=== PATIENT | male | born 1985 | race Caucasian/White ===

== ENCOUNTER 2017-01-21 13:37 | Inpatient (IN) | payer MEDICAID ==
[~2017-01-21] VITALS: Ht 182.9 cm; Wt 101.6 kg
[2017-01-21 15:09] VITALS: BP 155/101
[2017-01-21] MEDS ORDERED: ZOLPIDEM TARTRATE 10 MG TABLET PO PRN (15:15)
[2017-01-21] MEDS ORDERED: HYDR25TA PO ×2 (16:08→17:55)
[2017-01-21] MEDS ORDERED: LISI-662 PO (16:08)
[2017-01-21] MEDS ORDERED: GABA-529 PO (16:08)
[2017-01-21 16:09] VITALS: BP 139/91
[2017-01-21 16:15] VITALS: BP 152/97
[2017-01-21] MEDS: LORazepam 2 MG TABLET PO PRN (16:33)
[2017-01-21] MEDS: HALOPERIDOL 5 MG TABLET PO PRN (16:33)
[2017-01-21] MEDS: DULoxetine HCL 30 MG CAPSULE PO SCH (16:51)
[2017-01-21] MEDS ORDERED: INFLUENZA VIRUS VACCINE QVS 2017-18 (3YR+)/PF 60 MCG/0.5 ML SYRINGE IM ONE (17:00)
[2017-01-21] MEDS ORDERED: PNEUMOCOCCAL VACCINE POLYVALENT 0.5 ML VIAL [PPSV23] IM ONE (17:00)
[2017-01-21] MEDS: HYDROCHLOROTHIAZIDE 25 MG TABLET PO SCH (17:38)
[2017-01-21] MEDS: LISINOPRIL 20 MG TABLET PO SCH (17:38)
[2017-01-21] MEDS: GABAPENTIN 300 MG CAPSULE PO SCH (17:38)
[2017-01-21] MEDS ORDERED: GABA-531 PO (17:55)
[2017-01-21 18:00] VITALS: BP 124/58
[2017-01-22 05:45] VITALS: BP 125/76
[2017-01-22 07:41] LABS: BASOPHILS # (AUTO) 0.06 K/uL (0.00-0.20); BASOPHILS % (AUTO) 0.7 % (0.0-2.0); EOSINOPHILS % (AUTO) 1.27 % (1.0-6.0); HEMATOCRIT 41.9 % (41-53); HEMOGLOBIN 14.1 g/dL (13.5-17.5); LYMPHOCYTES # (AUTO) 2.6 K/uL (1.0-4.8); LYMPHOCYTES % (AUTO) 31.8 % (22.0-44.0); MEAN CORPUSCULAR HEMOGLOBIN 29.9 pg (26.0-34.0); MEAN CORPUSCULAR HGB CONC 33.6 G/dL (31.0-37.0); MEAN CORPUSCULAR VOLUME 89 fL (80-100); MONOCYTES # (AUTO) 0.7 K/uL (0.1-1.0); MONOCYTES % (AUTO) 8.7 % (2.0-9.0); NEUTROPHILS # (AUTO) 4.7 K/uL (1.8-7.7); NEUTROPHILS % (AUTO) 57.6 % (40.0-70.0); PLATELET COUNT (AUTO) 204 K/uL (150-450); RED BLOOD CELL COUNT(AUTO) 4.71 MIL/uL (4.50-5.90); RED CELL DISTRIBUTION WIDTH 13.9 % (11.5-14.5); WHITE BLOOD COUNT (AUTO) 8.2 K/uL (4.5-11.0)
[2017-01-22] MEDS ORDERED: ALBUTEROL SULFATE HFA 90 MCG/PUFF 8 GM INHALER IH PRN (08:00)
[2017-01-22] MEDS ORDERED: MAG HYDROX/AL HYDROX/SIMETH ES 30 ML SUSPENSION UDCUP PO PRN (08:00)
[2017-01-22] MEDS ORDERED: BACITRACIN 28.4 GM OINTMENT TP PRN (08:00)
[2017-01-22] MEDS ORDERED: PETROLATUM,WHITE 71 GM JELLY TP PRN (08:00)
[2017-01-22] MEDS ORDERED: MAGNESIUM HYDROXIDE SUSPENSION 30 ML UDCUP PO PRN (08:00)
[2017-01-22] MEDS ORDERED: CloNIDine HCL 0.1 MG TABLET PO PRN (08:00)
[2017-01-22] MEDS ORDERED: ONDANSETRON HCL 4 MG TABLET PO PRN (08:00)
[2017-01-22] MEDS ORDERED: LOPERAMIDE HCL 2 MG CAPSULE PO PRN (08:00)
[2017-01-22] MEDS ORDERED: ACETAMINOPHEN 325 MG TABLET PO PRN (08:00)
[2017-01-22] MEDS ORDERED: BENZOCAINE/MENTHOL LOZENGE MM PRN (08:00)
[2017-01-22] MEDS ORDERED: IBUPROFEN 600 MG TABLET PO PRN (08:00)
[2017-01-22 08:29] LABS: HEMOGLOBIN A1C 5.7 % (4.5-6.2)
[2017-01-22 08:38] VITALS: BP 120/76
[2017-01-22 08:46] LABS: APPEARANCE,URINE TURBID (CLEAR); GLUCOSE, URINE (UA) NEGATIVE (NEGATIVE); KETONES,URINE >=80 mg/dL (NEGATIVE); LEUKOCYTE ESTERASE ,URINE NEGATIVE (NEGATIVE); OCCULT BLOOD,URINE NEGATIVE (NEGATIVE); PROTEIN,URINE NEGATIVE (NEGATIVE)
[2017-01-22 08:52] LABS: ADD UA MICROSCOPIC YES
[2017-01-22 08:53] LABS: ALANINE AMINOTRANSFERASE 30 U/L (12-78); ALBUMIN 4.1 g/dL (3.4-5.0); ANION GAP 10 mmol/L (8-16); ASPARTATE AMINOTRANSFERASE 18 U/L (15-37); BILIRUBIN,TOTAL 1.6 mg/dL (0.1-1.0); CALCIUM, TOTAL 8.8 mg/dL (8.8-10.5); CARBON DIOXIDE 27 mmol/L (22-29); CHLORIDE 100 mmol/L (98-107); CHOL/HDL RATIO 4.4 (4.2-7.3); CREATININE 0.83 mg/dL (0.60-1.30); GLOMERULAR FILTR. RATE CALC > 60 mL/min (>60); POTASSIUM 3.8 mmol/L (3.5-5.1); SODIUM SERUM 137 mmol/L (136-145); THYROID STIMULATING HORMONE 1.78 uIU/mL (0.36-3.74); TOTAL PROTEIN, SERUM 6.9 g/dL (6.4-8.2); UREA NITROGEN, BLOOD 15 mg/dL (7-18)
[2017-01-22 08:53] LABS: RBC,URINE None Seen /HPF (0-2)
[2017-01-22 08:54] LABS: AMORPHOUS SEDIMENT,UR Many /LPF (None Seen); CALCIUM OXALATE CRYSTALS,UR Few /LPF (None Seen); SQUAMOUS EPITHELIAL CELL,UR None Seen /LPF (None Seen); WBC,URINE None Seen /HPF (0-5)
[2017-01-22] MEDS: HYDROCHLOROTHIAZIDE 25 MG TABLET PO SCH (09:20)
[2017-01-22] MEDS: LORazepam 2 MG TABLET PO PRN (09:20)
[2017-01-22] MEDS: DULoxetine HCL 30 MG CAPSULE PO SCH ×2 (09:20→17:00)
[2017-01-22] MEDS: GABAPENTIN 300 MG CAPSULE PO SCH (09:20)
[2017-01-22] MEDS: HALOPERIDOL 5 MG TABLET PO PRN (09:20)
[2017-01-22] MEDS: LISINOPRIL 20 MG TABLET PO SCH (09:20)
[2017-01-22] MEDS: NICOTINE 21 MG/24 HOUR PATCH TD SCH (09:20)
[2017-01-22 16:00] VITALS: BP 112/70
[2017-01-23 06:02] VITALS: BP 110/60
[2017-01-23 08:48] VITALS: BP 125/73
[2017-01-23] MEDS: LISINOPRIL 20 MG TABLET PO SCH (08:52)
[2017-01-23] MEDS: HYDROCHLOROTHIAZIDE 25 MG TABLET PO SCH (08:52)
[2017-01-23] MEDS: GABAPENTIN 300 MG CAPSULE PO SCH (08:52)
[2017-01-23] MEDS: DULoxetine HCL 30 MG CAPSULE PO SCH ×2 (08:54→16:31)
[2017-01-23] MEDS: NICOTINE 21 MG/24 HOUR PATCH TD SCH (08:58)
[2017-01-23 17:26] VITALS: BP 119/76
[2017-01-24 00:56] VITALS: BP 130/64
[2017-01-24] MEDS: GABAPENTIN 300 MG CAPSULE PO SCH (08:25)
[2017-01-24] MEDS: HYDROCHLOROTHIAZIDE 25 MG TABLET PO SCH (08:25)
[2017-01-24] MEDS: DULoxetine HCL 30 MG CAPSULE PO SCH ×2 (08:25→16:06)
[2017-01-24] MEDS: NICOTINE 21 MG/24 HOUR PATCH TD SCH (08:25)
[2017-01-24] MEDS: LISINOPRIL 20 MG TABLET PO SCH (08:25)
[2017-01-24] MEDS: LORazepam 2 MG TABLET PO PRN (09:09)
[2017-01-24 09:48] VITALS: BP 122/63
[2017-01-24] MEDS ORDERED: DULO30CA2 PO (16:37)
== END 2017-01-24 17:30 | disposition home or self-care (01) | DRG 751 ==
LOC: B2S 15:31
PROVIDERS: ADMIT Psychiatry & Neurology Psychiatry; ATTEND Psychiatry & Neurology Psychiatry
DX: F33.2 Major depressive disorder, recurrent severe without psychotic features (principal); R45.851 Suicidal ideations; Z91.19 Patient's noncompliance with other medical treatment and regimen; I10 Essential (primary) hypertension; F15.10 Other stimulant abuse, uncomplicated; F12.90 Cannabis use, unspecified, uncomplicated; F17.200 Nicotine dependence, unspecified, uncomplicated; G47.00 Insomnia, unspecified; K59.00 Constipation, unspecified; Z91.5 Personal history of self-harm; Z88.8 Allergy status to other drugs, medicaments and biological substances; Z79.899 Other long term (current) drug therapy
CPT/HCPCS: 80307; 83036; 84146; 84439; 84443

== ENCOUNTER 2017-05-23 13:18 | Inpatient (IN) | payer MEDICAID ==
[~2017-05-23] VITALS: Ht 182.9 cm; Wt 96.7 kg
[~2017-05-23 13:18] MED LIST: DULO30CA2 PO; GABA-531 PO; HYDR25TA PO; LISI-662 PO
[2017-05-23] MEDS ORDERED: GuaiFENesin/D-METHORPHAN [SUGAR-FREE] 200-20MG/10 ML SYRUP UDCUP PO PRN (14:00)
[2017-05-23] MEDS ORDERED: MAGNESIUM HYDROXIDE SUSPENSION 30 ML UDCUP PO PRN (14:00)
[2017-05-23] MEDS ORDERED: LOPERAMIDE HCL 2 MG CAPSULE PO PRN (14:00)
[2017-05-23] MEDS ORDERED: HydrOXYzine PAMOATE 50 MG CAPSULE PO PRN (14:00)
[2017-05-23] MEDS ORDERED: TUBERCULIN, PURIFIED PROTEIN DERIVATIVE 5 TU/0.1 ML SYG ID ONE (14:00)
[2017-05-23] MEDS ORDERED: QUEtiapine FUMARATE 100 MG TABLET PO PRN (14:00)
[2017-05-23] MEDS ORDERED: ZOLPIDEM TARTRATE 10 MG TABLET PO PRN (14:00)
[2017-05-23] MEDS ORDERED: PROMETHAZINE HCL 25 MG TABLET PO PRN (14:00)
[2017-05-23] MEDS ORDERED: MAG HYDROX/AL HYDROX/SIMETH ES 30 ML SUSPENSION UDCUP PO PRN (14:00)
[2017-05-23] MEDS ORDERED: ACETAMINOPHEN 325 MG TABLET PO PRN (14:00)
[2017-05-23 14:41] VITALS: BP 145/75
[2017-05-23] MEDS ORDERED: INFLUENZA VIRUS VACCINE QVS 2017-18 (3YR+)/PF 60 MCG/0.5 ML SYRINGE IM ONE (15:15)
[2017-05-23] MEDS ORDERED: PNEUMOCOCCAL VACCINE POLYVALENT 0.5 ML VIAL [PPSV23] IM ONE (15:15)
[2017-05-23] MEDS: LORazepam 2 MG TABLET PO PRN (16:26)
[2017-05-23] MEDS: THIAMINE HCL 100 MG TABLET PO SCH (16:26)
[2017-05-23 16:39] VITALS: BP 145/78
[2017-05-24 06:35] VITALS: BP 121/74
[2017-05-24 08:25] VITALS: BP 127/84
[2017-05-24 08:30] LABS: BASOPHILS % (AUTO) 1.2 % (0.0-2.0); EOSINOPHILS % (AUTO) 2.4 % (1.0-6.0); HEMATOCRIT 40.1 % (41-53); HEMOGLOBIN 13.8 g/dL (13.5-17.5); LYMPHOCYTES # (AUTO) 1.8 K/uL (1.0-4.8); MEAN CORPUSCULAR HEMOGLOBIN 29.8 pg (26.0-34.0); MEAN CORPUSCULAR HGB CONC 34.4 G/dL (31.0-37.0); MEAN CORPUSCULAR VOLUME 87 fL (80-100); MONOCYTES # (AUTO) 0.5 K/uL (0.1-1.0); MONOCYTES % (AUTO) 6.4 % (2.0-9.0); NEUTROPHILS # (AUTO) 4.7 K/uL (1.8-7.7); PLATELET COUNT (AUTO) 224 K/uL (150-450); RED BLOOD CELL COUNT(AUTO) 4.63 MIL/uL (4.50-5.90); RED CELL DISTRIBUTION WIDTH 13.5 % (11.5-14.5)
[2017-05-24] MEDS: NICOTINE 21 MG/24 HOUR PATCH TD SCH (08:59)
[2017-05-24] MEDS: MULTIVITAMINS WITH MINERALS, THERAPEUTIC TABLET PO SCH (09:00)
[2017-05-24] MEDS: LISINOPRIL 20 MG TABLET PO SCH (09:00)
[2017-05-24] MEDS: NALTREXONE HCL 50 MG TABLET PO SCH (09:00)
[2017-05-24] MEDS: THIAMINE HCL 100 MG TABLET PO SCH ×2 (09:00→16:42)
[2017-05-24] MEDS: DULoxetine HCL 30 MG CAPSULE PO SCH (09:01)
[2017-05-24] MEDS: FOLIC ACID 1 MG TABLET PO SCH (09:01)
[2017-05-24 09:02] LABS: ALANINE AMINOTRANSFERASE 23 U/L (12-78); ALBUMIN 3.6 g/dL (3.4-5.0); ALKALINE PHOSPHATASE 73 U/L (46-116); ANION GAP 7 mmol/L (8-16); ASPARTATE AMINOTRANSFERASE 11 U/L (15-37); BILIRUBIN,TOTAL 0.5 mg/dL (0.1-1.0); CALCIUM, TOTAL 8.8 mg/dL (8.8-10.5); CARBON DIOXIDE 28 mmol/L (22-29); CHLORIDE 105 mmol/L (98-107); CHOL/HDL RATIO 5.8 (4.2-7.3); CHOLESTEROL 152 mg/dL (131-200); CREATININE 0.78 mg/dL (0.60-1.30); FREE T4 (FREE THYROXINE) 0.99 ng/dL (0.76-1.46); GLOMERULAR FILTR. RATE CALC > 60 mL/min (>60); GLUCOSE,RANDOM 90 mg/dL (70-110); HDL CHOLESTEROL 26 mg/dL (40-60); LDL CHOL (CALC.) 113 mg/dL (0-130); SODIUM SERUM 140 mmol/L (136-145); THYROID STIMULATING HORMONE 1.15 uIU/mL (0.36-3.74); TOTAL PROTEIN, SERUM 6.7 g/dL (6.4-8.2); TRIGLYCERIDES 67 mg/dL (15-150); UREA NITROGEN, BLOOD 8 mg/dL (7-18)
[2017-05-24] MEDS: HYDROCHLOROTHIAZIDE 25 MG TABLET PO SCH (09:03)
[2017-05-24 09:14] LABS: HEMOGLOBIN A1C 5.4 % (4.5-6.2)
[2017-05-24 16:46] VITALS: BP 120/72
[2017-05-24] MEDS: PREGABALIN 25 MG CAPSULE PO SCH (17:00)
[2017-05-25 01:24] VITALS: BP 111/66
[2017-05-25] MEDS: NICOTINE 21 MG/24 HOUR PATCH TD SCH (08:36)
[2017-05-25] MEDS: PREGABALIN 25 MG CAPSULE PO SCH ×3 (08:36→16:25)
[2017-05-25] MEDS: MULTIVITAMINS WITH MINERALS, THERAPEUTIC TABLET PO SCH (08:37)
[2017-05-25] MEDS: LISINOPRIL 20 MG TABLET PO SCH (08:37)
[2017-05-25] MEDS: THIAMINE HCL 100 MG TABLET PO SCH ×2 (08:37→16:25)
[2017-05-25] MEDS: FOLIC ACID 1 MG TABLET PO SCH (08:37)
[2017-05-25] MEDS: HYDROCHLOROTHIAZIDE 25 MG TABLET PO SCH (08:37)
[2017-05-25] MEDS: NALTREXONE HCL 50 MG TABLET PO SCH (08:37)
[2017-05-25] MEDS: DULoxetine HCL 30 MG CAPSULE PO SCH (08:37)
[2017-05-25 08:48] VITALS: BP 113/79
[2017-05-25 09:08] LABS: AMPHET/METH SCREEN,URINE NEGATIVE (NEGATIVE); BARBITURATE SCREEN, URINE NEGATIVE (NEGATIVE); BENZODIAZEPINES SCREEN,URINE NEGATIVE (NEGATIVE); CANNABINOID SCREEN,URINE POSITIVE (NEGATIVE); COCAINE SCREEN,URINE NEGATIVE (NEGATIVE); METHADONE SCREEN, URINE NEGATIVE (NEGATIVE); OPIATE SCREEN,URINE NEGATIVE (NEGATIVE)
[2017-05-25 09:11] LABS: PHENCYCLIDINE SCREEN,URINE NEGATIVE (NEGATIVE)
[2017-05-25 09:12] LABS: APPEARANCE,URINE TURBID (CLEAR); BILIRUBIN,URINE NEGATIVE (NEGATIVE); GLUCOSE, URINE (UA) NEGATIVE (NEGATIVE); KETONES,URINE NEGATIVE (NEGATIVE); LEUKOCYTE ESTERASE ,URINE NEGATIVE (NEGATIVE); NITRATE,URINE NEGATIVE (NEGATIVE); OCCULT BLOOD,URINE NEGATIVE (NEGATIVE); PH,URINE 7.5 (5.0-8.0); PROTEIN,URINE NEGATIVE (NEGATIVE)
[2017-05-25 09:47] LABS: AMORPHOUS SEDIMENT,UR Moderate /LPF (None Seen); BACTERIA,URINE Few /HPF (None Seen); RBC,URINE None Seen /HPF (0-2); SQUAMOUS EPITHELIAL CELL,UR Rare /LPF (None Seen); WBC,URINE 0-2 /HPF (0-5)
[2017-05-25] MEDS: LORazepam 2 MG TABLET PO PRN (09:51)
[2017-05-25 16:32] VITALS: BP 124/72
[2017-05-25] MEDS ORDERED: PREGABALIN 50 MG CAPSULE PO SCH (17:00)
[2017-05-26 02:13] VITALS: BP 112/60
[2017-05-26 08:12] VITALS: BP 121/64
[2017-05-26 08:30] VITALS: BP 114/71
[2017-05-26] MEDS: MULTIVITAMINS WITH MINERALS, THERAPEUTIC TABLET PO SCH (08:33)
[2017-05-26] MEDS: FOLIC ACID 1 MG TABLET PO SCH (08:33)
[2017-05-26] MEDS: THIAMINE HCL 100 MG TABLET PO SCH ×2 (08:33→16:23)
[2017-05-26] MEDS: LISINOPRIL 20 MG TABLET PO SCH (08:33)
[2017-05-26] MEDS: HYDROCHLOROTHIAZIDE 25 MG TABLET PO SCH (08:33)
[2017-05-26] MEDS ORDERED: DULoxetine HCL 20 MG CAPSULE PO SCH (09:00)
[2017-05-26] MEDS: NALTREXONE HCL 50 MG TABLET PO SCH (09:07)
[2017-05-26] MEDS: PREGABALIN 50 MG CAPSULE PO SCH ×3 (09:07→16:22)
[2017-05-26] MEDS: NICOTINE 21 MG/24 HOUR PATCH TD SCH (09:11)
[2017-05-26 16:11] VITALS: BP 115/78
[2017-05-26] MEDS ORDERED: NALT50TA PO (17:14)
[2017-05-26] MEDS ORDERED: PREG50 PO (17:14)
[2017-05-26] MEDS ORDERED: DULO20CA30 PO (17:14)
[2017-05-27 02:08] VITALS: BP 112/62
[2017-05-27] MEDS ORDERED: MULT-1239 PO (04:39)
[2017-05-27] MEDS ORDERED: FOLI1TAB15 PO (04:40)
[2017-05-27] MEDS ORDERED: LISI-662 PO (04:41)
[2017-05-27] MEDS ORDERED: HYDR25TA PO (04:41)
[2017-05-27] MEDS ORDERED: THIA100 PO (04:42)
[2017-05-27] MEDS ORDERED: NICO-704 TD (04:43)
[2017-05-27 08:52] VITALS: BP 113/74
[2017-05-27] MEDS ORDERED: DULoxetine HCL 60 MG CAPSULE PO SCH (09:00)
[2017-05-27] MEDS ORDERED: NALT50TA6 PO (09:18)
[2017-05-27] MEDS ORDERED: PREG50 PO ×2 (09:18→09:20)
[2017-05-27] MEDS ORDERED: DULO60CA44 PO (09:18)
[2017-05-27] MEDS: HYDROCHLOROTHIAZIDE 25 MG TABLET PO SCH (09:46)
[2017-05-27] MEDS: LISINOPRIL 20 MG TABLET PO SCH (09:46)
[2017-05-27] MEDS: THIAMINE HCL 100 MG TABLET PO SCH (09:46)
[2017-05-27] MEDS: NICOTINE 21 MG/24 HOUR PATCH TD SCH (09:46)
[2017-05-27] MEDS: PREGABALIN 50 MG CAPSULE PO SCH ×2 (09:46→12:04)
[2017-05-27] MEDS: MULTIVITAMINS WITH MINERALS, THERAPEUTIC TABLET PO SCH (09:47)
[2017-05-27] MEDS: FOLIC ACID 1 MG TABLET PO SCH (09:47)
[2017-05-27] MEDS: NALTREXONE HCL 50 MG TABLET PO SCH (09:47)
== END 2017-05-27 12:25 | disposition home or self-care (01) | DRG 751 ==
LOC: B2S 14:08
PROVIDERS: ADMIT Psychiatry & Neurology Psychiatry; ATTEND Psychiatry & Neurology Psychiatry
DX: F33.9 Major depressive disorder, recurrent, unspecified (principal); R45.851 Suicidal ideations; Z91.19 Patient's noncompliance with other medical treatment and regimen; F12.10 Cannabis abuse, uncomplicated; I10 Essential (primary) hypertension; F15.10 Other stimulant abuse, uncomplicated; F41.9 Anxiety disorder, unspecified; G47.00 Insomnia, unspecified; K59.00 Constipation, unspecified; G89.29 Other chronic pain; M54.5 Low back pain; F17.200 Nicotine dependence, unspecified, uncomplicated; Z71.51 Drug abuse counseling and surveillance of drug abuser; Z82.49 Family history of ischemic heart disease and other diseases of the circulatory system; Z71.6 Tobacco abuse counseling; Z71.89 Other specified counseling; Z28.21 Immunization not carried out because of patient refusal
CPT/HCPCS: 80307; 83036; 84439; 84443; 86592